=== PATIENT | female | born 1990 | race Caucasian/White ===

== ENCOUNTER 2022-08-15 12:48 | Outpatient (REF) | payer MEDICAID, SELFPAY ==
--- NOTE | 2022-08-15 10:10 | PAPFT_PTH ---
PATIENT: Melanie Oliveros LOC: [facility]#:[id number] AGE/SX: 31/F ROOM: RE08/15/[address]: Lauryn Snow : 1990 BED: DIS: 08/15/2022 SPEC #: [id number] RECD: 08/15/22 17:51 STATUS: ALO REQ #: [id number] ENIO: 08/15/22 10:[address]: Lauryn Snow DEPT: [facility] Cytology RECD BY: Nikole Mane ENTERED: 08/15/22 17:52 SP TYPE: PAPFT SHAE DR: Unknown,Unknown Tissues: 1 - CX/ENDOCX FOR PAP SMEARS Procedures: PAP THIN PREP/[facility] Screening HPV DNA PROBE Comments: [id number]
== END 2022-08-15 12:49 | disposition home or self-care (01) ==
LOC: NCHCN 12:48
PROVIDERS: Visit Provider Nurse Practitioner Family
DX: Z12.4 Encounter for screening for malignant neoplasm of cervix (principal); Z11.51 Encounter for screening for human papillomavirus (HPV)
CPT/HCPCS: 88142; 87624

== ENCOUNTER 2022-11-06 10:09 | Outpatient (REF) | payer MEDICAID, SELFPAY ==
[2022-11-06 14:36] LABS: Hemoglobin A1C 5.4 % (<5.7)
[2022-11-06 15:17] LABS: ALT 26 U/L (14-59); AST 24 U/L (15-37); Albumin 3.7 g/dL (3.4-5.0); Alkaline Phosphatase 102 U/L (46-116); BUN 8 mg/dL (7-18); Bilirubin, Total 0.6 mg/dL (0.2-1.0); CREATININE 0.7 mg/dL (0.55-1.02); Calcium 9.1 mg/dL (8.5-10.1); Calculated LDL 117 mg/dL (<100); Chloride 104 mmol/L (98-107); Cholesterol 183 mg/dL (<200); Estimated GFR 118.51 (mL/min/1.73m2); Glucose 95 mg/dL (74-106); HDL Cholesterol 50 mg/dL (40-60); Potassium 4.3 mmol/L (3.5-5.1); Sodium 138 mmol/L (136-145); TSH (W/Ref FT4) 1.26 uIU/mL (0.36-3.74); Total Protein 8.1 g/dL (6.4-8.2); Triglyceride 84 mg/dL (<150)
== END 2022-11-06 10:10 | disposition home or self-care (01) ==
LOC: NCHCN 10:09
PROVIDERS: Visit Provider Nurse Practitioner Family
DX: E66.01 Morbid (severe) obesity due to excess calories (principal); Z13.1 Encounter for screening for diabetes mellitus; Z13.220 Encounter for screening for lipoid disorders; Z13.29 Encounter for screening for other suspected endocrine disorder; Z68.41 Body mass index [BMI] 40.0-44.9, adult
CPT/HCPCS: 80053; 80061; 83036; 84443